=== PATIENT | female | born 2000 | race Caucasian/White ===

== ENCOUNTER 2019-04-24 09:35 | Emergency (ER) | payer BC ==
[~2019-04-24] VITALS: Wt 70.0 kg
[~2019-04-24 09:35] MED LIST: CYCL10TA7 PO; IBUP-1542 PO
[2019-04-24 12:19] VITALS: BP 113/62; PULSE 66; RESP 16
== END 2019-04-24 12:21 | disposition home or self-care (01) ==
LOC: FTE 09:35
DX: S16.1XXA Strain of muscle, fascia and tendon at neck level, initial encounter (principal); S39.012A Strain of muscle, fascia and tendon of lower back, initial encounter; V49.49XA Driver injured in collision with other motor vehicles in traffic accident, initial encounter
CPT/HCPCS: 72040; 72072; 81025; Z7502